=== PATIENT | male | born 1955 | race Caucasian/White ===

== ENCOUNTER 2016-06-28 11:34 | Emergency (ER) | payer OTHER ==
[~2016-06-28] VITALS: Ht 177.8 cm; Wt 96.3 kg
[2016-06-28 11:41] VITALS: TEMP 36.3; Ht 177.8 cm; Wt 96.3 kg
[2016-06-28] MEDS ORDERED: VST25HP PO (13:06)
[2016-06-28] MEDS ORDERED: PROP10TA7 PO (13:06)
[2016-06-28] MEDS ORDERED: OMEP40CA41 PO (13:06)
[2016-06-28] MEDS ORDERED: EMOL-31 TOP (13:06)
[2016-06-28] MEDS ORDERED: CHOL4POW4 PO (13:06)
[2016-06-28] MEDS ORDERED: MAGN400T6 PO (13:06)
[2016-06-28] MEDS ORDERED: AUG0.05C12 TOP (13:06)
[2016-06-28] MEDS ORDERED: VITA1TAB PO (13:06)
[2016-06-28] MEDS ORDERED: MULT-7 PO (13:06)
[2016-06-28] MEDS ORDERED: ACET-1311 PO (13:06)
[2016-06-28] MEDS ORDERED: LACT10SO17 PO (13:06)
[2016-06-28] MEDS ORDERED: TRMCR515 TOP (13:06)
[2016-06-28] MEDS ORDERED: MINEOIL TOP (13:06)
[2016-06-28] MEDS ORDERED: ZINC13CR TOP (13:06)
--- NOTE | 2016-06-28 13:59 | DIAGNOSTIC IMAGING REPORT ---
CT HEAD WITHOUT CONTRAST (CT) CLINICAL HISTORY: Scalp contusion status post head trauma. Head pain COMPARISON STUDY: No previous studies for comparison. TECHNIQUE: Axial CT of the brain is performed from the vertex to the skull base. IV contrast was not administered for this examination. CT DOSE: FINDINGS: No intra or extra-axial mass lesions are visualized. There is no CT evidence of acute cortical infarction. There is no evidence of midline shift. There is no acute hemorrhage. No calvarial fractures are visualized. There is no evidence of pathologic ventricular dilatation. There is opacification of sphenoid sinus. There is mucosal disease involving several ethmoid air cells. There is mucosal disease involving the central aspect of the frontal sinus. There is frontal scalp edema. IMPRESSION: 1. Frontal scalp edema 2. Paranasal sinus disease 3. No evidence of acute intracranial injury Electronically signed by: Corona Corral M.D. 06/28/2016 1:58 PM Dictated Date/Time: 06/28/2016 1:57 PM
--- NOTE | 2016-06-28 14:11 | DIAGNOSTIC IMAGING REPORT ---
CT SCAN OF THE CERVICAL SPINE CLINICAL HISTORY: Fall. Head injury. COMPARISON STUDY: No priors. TECHNIQUE: CT scan of the cervical spine is performed from the skull base to the upper thoracic spine. Images are reviewed in the axial, sagittal, and coronal planes. IV contrast was not administered for this examination. CT DOSE: 1308.16 mGy.cm FINDINGS: Skeletal structures: The skeletal structures are osteopenic. There is no evidence of fracture or subluxation involving the cervical spine. There are postoperative changes from laminectomy and posterior fusion seen from C2 through C7. The orthopedic hardware appears intact. Vertebral body height and alignment are maintained. There is straightening of cervical lordosis with mild reversal centered at C4-C5. The odontoid process and lateral masses are intact. The atlantoaxial articulation is preserved noting moderate to advanced productive degenerative change with bony overgrowth and sclerosis. The remaining spinous processes appear intact. Intervertebral discs: Mild degenerative disc space narrowing seen at C5-C6. The remaining disc spaces appear maintained. Central canal: Grossly patent. Soft tissues: The prevertebral and paraspinous soft tissues are within normal limits. Curvilinear foci of gas are present within the parotid glands, likely venous. This is of indeterminant etiology and significance. Calvarium: The visualized calvarium at the skull base appears intact. Brain parenchyma: Partially visualized brain parenchyma the skull base is within normal limits noting age-related involutional change. Sinuses and mastoids: Trace fluid is noted within the right maxillary antrum. There is opacification of the visualized sphenoid sinuses. The mastoid air cells are well pneumatized. Lung apices: Clear as visualized. IMPRESSION: 1. There is no evidence of fracture or subluxation involving the cervical spine. 2. Degenerative and extensive postoperative change as above. 3. Sphenoid sinus disease Electronically signed by: Rob Garcia M.D. 06/28/2016 2:10 PM Dictated Date/Time: 06/28/2016 1:58 PM
[2016-06-28 14:49] VITALS: BP 132/78; PULSE 57; O2SAT 98
--- NOTE | 2016-07-01 06:24 | EMERGENCY ROOM VISIT NOTE ---
ED Visit Note First contact with patient: 13:16 Chief Complaint: Head injury and neck pain. History of Present Illness: Mr. Weller is a 61-year-old white male who ambulates into the ED accompanied by 2 retirement guards with a possible head injury. According to the guards and paperwork sent with a prisoner patient apparently fell last night at an unknown time and has contusions and hematoma to the scalp. There is no documentation of the fall was witnessed or if there was a loss of consciousness. Patient reports he slipped and fell in the shower but does not remember the fall. He denies lightheaded dizziness before the fall, loss of consciousness at the time of fall and denies visual changes, hearing changes, difficulty speaking, difficulty swallowing, difficulty ambulating/coordinating body movements, neck pain, back pain, chest pain, shortness of breath, abdominal pain , nausea/vomiting, extremity weakness/numbness/tingling. Currently he is complaining of bifrontal and biparietal head pain. She describes this pain as a pressure sensation. He rates his discomfort 4/10. Pain is nonradiating. Pain worsens with palpation of his head. He has not identified any alleviating factors related to the pain. He has not taken any medications for pain prior to arrival at the hospital. Additionally he describes his neck pain as a achy sensation. He rates this discomfort 2/10. Places his discomfort and the C3-C4 area. Pain is nonradiating. Pain worsens with palpation. He has not identified any alleviating factors related to the pain. Review of Systems: As noted above in history of present illness. 8 body systems were reviewed and found to be negative as noted above. Past Medical History: End-stage liver disease, cirrhosis, osteoarthritis, psoriasis, previous surgical spine fracture. Current Medications: Medications Dose Route/Sig Max Daily Dose Days Date Category Hydroxyzine Pamoate (Hydroxyzine HCl) 25 Mg Tab 3 Cap PO BID 06/28/16 Reported Desitin (Zinc Oxide (Topical)) 13 % Cre 1 Appln TOP QID 06/28/16 Reported Tylenol (Acetaminophen) 325 Mg Tab 650 Mg PO TID 06/28/16 Reported Ultra B-100 Complex (Vitamins W/ Lipotropics) 1 Tab Tab 1 Tab PO DAILY 06/28/16 Reported Triamcinolone Acetonide (Triamcinolone Acet) 45 Appln/15 Gm Cr 1 Appln TOP BID 30 06/28/16 Reported Inderal (Propranolol HCl) 10 Mg Tab 10 Mg PO BID 06/28/16 Reported Prilosec (Omeprazole) 40 Mg Cap 40 Mg PO BID 06/28/16 Reported Mineral Oil Light (Mineral Oil Light (Topical)) 1 Oil Oil 1 Appln TOP DAILY 06/28/16 Reported Mag-Ox (Magnesium Oxide) 400 Mg Tab 400 Mg PO BID 06/28/16 Reported Lubriskin (Emollient) 1 Lot Lot 1 Appln TOP DAILY 06/28/16 Reported Chronulac (Lactulose) 10 Gm/15 Ml Syrp 60 Ml PO TID 06/28/16 Reported Cholestyramine 4 Gm Pow 4 Gm PO DAILY 06/28/16 Reported Certavite/Antioxidants (Multiple Vitamins W/ Minerals) 1 Tab Tab 1 Tab PO DAILY 06/28/16 Reported Diprolene Af (Betamethasone Dipropionate Aug) 0.05 % Cre 1 Appln TOP BID 06/28/16 Reported Allergies to Medications: Patient denies and none were reported. Social History: Patient is currently a prisoner. Physical Examination: Vital Signs: Date Time Temp Pulse Resp B/P Pulse Ox O2 Delivery O2 Flow Rate FiO2 06/28/16 14:49 57 18 132/78 98 06/28/16 13:59 57 18 132/78 98 Room Air 06/28/16 11:44 18 99 06/28/16 11:41 36.3 58 20 140/79 99 Room Air GENERAL: 61-year-old male in mild distress due to pain, nontoxic-appearing, afebrile and hemodynamically stable. NEUROLOGICAL: Awake, alert and oriented to person, place and time. Answering questions appropriately and following commands. Normal gait. Good hand eye coordination. No focal motor sensory deficits. Cranial nerves II through XII grossly intact. Good short-term but poor long-term memory. SKIN: Warm, dry and pink. Scalp: 3 contusions were noted over the scalp primarily on the right side. No breaks in the skin and no active bleeding. HEENT: Skull: Normocephalic. Please note soft tissues above. No bony deformity , bony crepitus. Moderate tenderness over the bifrontal and top of the head. No raccoon's eyes or rodriguez signs. No drainage from the ears and air; no hemotympanum. Face: No bony tenderness, swelling, bony deformity or ecchymosis. PERRLA. EOMI without nystagmus. Sclera white and conjunctiva pink. No malocclusion. No intraoral trauma. Airway patent. Speech is normal. Trachea midline. No jugular venous distention. BACK: No tenderness over the bony cervical and thoracic spine. Full range of motion of the cervical spine. THORAX: Lungs sounds are clear to auscultation and equal bilaterally with symmetrical chest wall. No crepitus, tenderness, subcutaneous air or deformities noted. ABDOMEN: Flat, soft and nontender. Positive bowel sounds in all quadrants. No guarding, rigidity or organomegaly. EXTREMITIES: Moves all extremities well on command and with purpose. All distal neurovascular statuses are intact and equal bilaterally. ED Course: Patient is assessed as noted above. Noncontrast Head CT: Was reviewed by myself and read by the radiologist showing no acute intracranial abnormalities or skull fractures. Radiologist does note a frontal scalp edema and paranasal sinus disease. Noncontrast Cervical Spine CT: Was reviewed by myself and shows no evidence of fracture or subluxation with degenerative and extensive postoperative changes including laminectomy and fusion. Patient was offered pain medications and refused. Patient was educated about tonight's findings and instructed on his treatment plan; he verbalizes understanding and agreement with this plan. Clinical Impression: Scalp contusion. Disposition: Patient discharged back to the retirement with 2 officers; prior to departure he was reassessed and subjectively reported he was pain-free. Plan: I recommended that the patient receive 650 mg of acetaminophen every 6 hours as needed for pain and ice as needed for pain and swelling. I recommended neurological checks. I recommended the patient be brought back to the emergency department for any signs of head injury or any new/concerning symptoms.
== END 2016-06-28 14:50 | disposition home or self-care (01) ==
LOC: C.EDB 11:40 → C.EDA 14:50
DX: S00.03XA Contusion of scalp, initial encounter (principal); W01.0XXA Fall on same level from slipping, tripping and stumbling without subsequent striking against object, initial encounter; Y92.149 Unspecified place in prison as the place of occurrence of the external cause; K72.90 Hepatic failure, unspecified without coma; M19.90 Unspecified osteoarthritis, unspecified site; Z87.81 Personal history of (healed) traumatic fracture; Z79.899 Other long term (current) drug therapy